=== PATIENT | female | born 1930 | race Caucasian/White ===

== ENCOUNTER → 2016-05-31 | Day surgery (SDC) | payer MEDICARE ==
[~2016-05-31] MED LIST: ACETYLCHOLINE CHL OPHT SOLN 1:100 2 ML VIAL ONE; ALEN70TA39 OR; ALPR0.25 PO; ASPI81 PO; ATOR20TA42 PO; ATROPINE SULFATE 1% OPHT SOLN 2 ML BTL ONE; CALTTAB5 PO; CILO100T PO; CLON.2 PO; DEXAMETHASONE SOD PHOS 4 MG/ML VIAL ONE; EPINEPHrine HCL (1:1000) 1 MG/ML VIAL ONE; FLURBIPROFEN 0.03% OPHT SOLN 2.5 ML BTL ONE; HYALURONIDASE/LIDOCAINE/BUPIVACAINE 11 ML SYR TL ONE; HYDR-2768 PO; LACTATED RINGER'S 1000 ML INJ 1,000 ML ONE; LISI-363 PO; METO50TA OR; NEOMYCIN/POLYMYXIN/DEXAMETHASONE OPTH OINT 3.5 GM TUBE ONE; NIAC50TA PO; PHENYLEPHRINE HCL 2.5 % OPTH SOLN 15 ML BTL ONE; PROPOFOL 100 MG/10 ML INJ IV ONE; SODIUM CHLORIDE 0.9% INJ 10 ML ONE; TETRACAINE 0.5% OPTH SOLN 4 ML BTL ONE; TRIAMCINOLONE ACETONIDE 40 MG/ML VIAL ONE; TROPICAMIDE 1% OPHT SOLN 15 ML BTL ONE; ceFAZolin INJ 1,000 MG VIAL ONE
--- NOTE | 2016-07-02 12:46 | TN ---
cc: DAVID GARCIA MD DATE OF SURGERY: 05/31/2016 DATE OF : 1930 PREOPERATIVE DIAGNOSIS Dislocated intraocular lens implant, left eye. POSTOPERATIVE DIAGNOSIS Dislocated intraocular lens implant, left eye. PROCEDURE Pars plana vitrectomy, removal of dislocated intraocular lens implant and placement of secondary intraocular lens implant, left eye. ANESTHESIA MAC. SURGEON Jeremy COMPLICATIONS None. DETAILS OF PROCEDURE After the patient gave informed consent she was anesthetized using retrobulbar anesthesia. She was then brought to the operating room and prepare and draped in the usual sterile fashion. A wire lid speculum was placed in the patient's left eye. A superior 180 degree conjunctival peritomy was then performed using 0.12 forceps and Angelita scissors. Excellent hemostasis was obtained with the bipolar cautery. 23-gauge vitrectomy cannulas were then placed in the lower temporal, superotemporal and superonasal quadrants 3 mm posterior to the corneoscleral limbus. An infusion cannula was placed lower temporally. Superiorly a 6 mm corneoscleral shelled frown incision was made using a 64 blade, crescent knife and keratome. The vitrector was then used to remove the vitreous. The dislocated lens was grasped using intraocular forceps and maneuvered into the anterior chamber and removed. A 7.5 diopter MTA4U0 lens was then placed into the anterior chamber. A superonasal peripheral iridectomy was performed using the vitreous cutter. Careful indirect ophthalmoscopy with scleral depression was then performed and no peripheral retinal breaks were noted. The corneal scleral incision was closed using three interrupted 10-0 nylon sutures. The two superior sclerotomy sites were closed using an interrupted 6-0 Vicryl suture. The infusion cannula was removed. The conjunctiva was re-apposed using two interrupted 7-0 Vicryl sutures. Subconjunctival injections of dexamethasone and Ancef were placed. An atropine drop, Maxitrol ointment and a patch and shield were then applied. The patient tolerated the procedure well. There were no complications. [facility]. David Garcia MD TAB/BT /8:46 AM /12:29 PM
--- NOTE | 2016-07-02 12:52 | MP ---
cc: DAVID GARCIA MD DATE OF SURGERY 06/11/2016 PREOPERATIVE DIAGNOSIS Dislocated intraocular lens implant left eye. POSTOPERATIVE DIAGNOSIS Dislocated intraocular lens implant left eye. PROCEDURE Pars plana vitrectomy and dislocated lens implant removal and placement of secondary lens implant. ANESTHESIA MAC SURGEON David Garcia MD COMPLICATIONS None DETAILS OF PROCEDURE After the patient gave informed consent she was anesthetized using retrobulbar anesthesia. She was then brought to the operating room and prepare and draped in the usual sterile fashion. A wire lid speculum was placed in the patient's left eye. A superior 180 degree conjunctival peritomy was then performed using 0.12 forceps and Angelita scissors. Excellent hemostasis was obtained with the bipolar cautery. 23-gauge vitrectomy cannulas were then placed in the lower temporal, superotemporal and superonasal quadrants 3 mm posterior to the corneoscleral limbus. An infusion cannula was placed lower temporally. Superiorly a 6 mm corneoscleral shelled frown incision was made using a 64 blade, crescent knife and keratome. The vitrector was then used to remove the vitreous. The dislocated lens was grasped using intraocular forceps and maneuvered into the anterior chamber and removed. A 7.5 diopter MTA4U0 lens was then placed into the anterior chamber. A superonasal peripheral iridectomy was performed using the vitreous cutter. Careful indirect ophthalmoscopy with scleral depression was then performed and no peripheral retinal breaks were noted. The corneal scleral incision was closed using three interrupted 10-0 nylon sutures. The two superior sclerotomy sites were closed using an interrupted 6-0 Vicryl suture. The infusion cannula was removed. The conjunctiva was re-apposed using two interrupted 7-0 Vicryl sutures. Subconjunctival injections of dexamethasone and Ancef were placed. An atropine drop, Maxitrol ointment and a patch and shield were then applied. The patient tolerated the procedure well. There were no complications. She will follow[facility]. David Garcia MD TAB/DJL /6:41 PM /12:49 PM
== END | disposition home or self-care (01) ==
LOC: ESDC 06:14
PROVIDERS: ATTEND Ophthalmology Retina Specialist
DX: H27.132 Posterior dislocation of lens, left eye (principal)
CPT/HCPCS: 00142; 00145; 66986; 67036; J0171; J0690; J1100; J7120; V2630; J3301